=== PATIENT | female | born 1960 | race Two or more races ===

== ENCOUNTER 2024-08-13 14:34 | Emergency (ER) | payer MEDICARE, OTHER ==
[~2024-08-13] VITALS: Ht 152.4 cm; Wt 58.1 kg
[2024-08-13] MEDS ORDERED: LIDOCAINE 0.5%-EPI 1:200,000 50 ML VIAL ONE (15:15)
[2024-08-13] MEDS: LIDOCAINE 1%-EPI 1:100,000 20 ML VIAL TP ONE (15:38)
[2024-08-13] MEDS ORDERED: ACETAMINOPHEN ES 500 MG TABLET ONE (15:46)
[2024-08-13] MEDS: ACETAMINOPHEN ES 500 MG TABLET PO ONE (15:50)
[2024-08-13 18:38] VITALS: BP 148/88; O2SAT 96
== END 2024-08-13 18:42 | disposition home or self-care (01) ==
LOC: ER 14:38
DX: S01.81XA Laceration without foreign body of other part of head, initial encounter (principal); R51.9 Headache, unspecified; M25.532 Pain in left wrist; M54.2 Cervicalgia; E11.9 Type 2 diabetes mellitus without complications; I10 Essential (primary) hypertension; W11.XXXA Fall on and from ladder, initial encounter; Y93.89 Activity, other specified; Y92.89 Other specified places as the place of occurrence of the external cause; Y99.8 Other external cause status
CPT/HCPCS: 99285; 13132; 72125; 70450; 70486; 73110; J3490